=== PATIENT | male | born 1975 | race Caucasian/White ===

== ENCOUNTER 2023-08-06 11:41 | Emergency (ER) | payer BC, SELFPAY ==
[2023-08-06 11:56] VITALS: BP 126/68; PULSE 98; RESP 18; TEMP 37; O2SAT 96
--- NOTE | 2023-08-06 12:25 | ED.URI ---
HPI - URI/Sore Throat General Chief Complaint: Upper Respiratory Infection Stated Complaint: Fever,Cough,Headache,Sore Throat,No Appetite Time Seen by Provider: 08/06/23 11:47 Source: patient Mode of arrival: ambulatory Limitations: no limitations History of Present Illness HPI Narrative: 47-year-old male presents to [facility] with complaints of fevers up to 101, cough, body aches, chills, sore throat sinus pressure since yesterday. Patient has been taking [id number] Tylenol with minimal relief. Patient denies sick contacts. Patient denies recent travels. Patient denies shortness of breath or wheezing. Patient is a nonsmoker MD elicited complaint: fever, sore throat, rhinorrhea and nasal congestion Onset (ago): day(s) (1) Able to tolerate fluids by mouth: Yes Exacerbating factors: nothing Relieving factors: nothing Treatments prior to arrival: acetaminophen Related Data Allergies Allergy/AdvReac Type Severity Reaction Status Date / Time No Known Allergies Allergy Verified 04/19/23 15:00 Review of Systems Constitutional: Constitutional: Reports chills, Reports fatigue, Reports fever(s) and Denies weakness ENT: Denies dizziness, Denies epistaxis, Reports nasal congestion and Reports sore throat Comments: Sinus pressure Cardiovascular: Cardiovascular: Denies chest pain Respiratory: Respiratory: Reports cough, Denies dyspnea and Denies wheezing Gastrointestinal: Gastrointestinal: Denies diarrhea, Denies nausea and Denies vomiting Integumentary/Breasts: Skin/Breast: Denies rash PMFSH Past Medical History Medical History Insulin resistance Social History Social History Smoking status: Never smoker Alcohol intake: never Substance use: never Substance use type: does not use Lack of Transportation: No Lack of Food: Never True Current Housing: I Have Housing Concerned About Future Housing: No Difficulty Paying Gas/Electric Bills: No Difficulty Paying for Meds: No Currently Unemployed: No Education: Bachelor's Degree Difficulty w/ Childcare or Family Care: No Comments At time of signature, I agree with nursing past medical, surgical, social and family history. There is no relevant family history pertinent to the presenting complaint. Exam Const: General: healthy appearing Nutritional Appearance: well nourished and obese Orientation/consciousness: patient oriented x3 Limitations: no limitations HENMT: Head: normal to inspection Ears: external ears normal, TM's normal bilaterally and EAC's normal Mouth: Yes Normal oral and palatal mucosa present, Yes lip normal and Yes moist mucous membranes Throat: posterior oropharynx normal and uvula midline Eyes: Conjunctivae: conjunctivae normal Neck: Neck: normal visual inspection Resp: Effort & Inspection: normal respiratory effort and not labored Auscultation: clear to auscultation bilaterally, no crackles, no rales and no rhonchi Cardio: Rate: regular rate Rhythm: regular rhythm Heart sounds: no murmurs Skin: General skin exam: normal color Rashes: no rashes Neuro: General: patient oriented x3 Speech: normal speech Psych: Affect: normal affect Attitude: cooperative Course Course Level of Care: Express Care Visit Vital Signs Vital signs: Vital Signs Temperature 37.0 C 08/06/23 11:56 Pulse Rate 98 08/06/23 11:56 Respiratory Rate 18 08/06/23 11:56 Blood Pressure 126/68 08/06/23 11:56 Pulse Oximetry 96 08/06/23 11:56 Oxygen Delivery Room Air 08/06/23 11:56 Temperature 37.0 C 08/06/23 11:56 Pulse Rate 98 08/06/23 11:56 Respiratory Rate 18 08/06/23 11:56 Blood Pressure 126/68 08/06/23 11:56 Pulse Oximetry 96 08/06/23 11:56 Oxygen Delivery Room Air 08/06/23 11:56 MDM - URI/Sore Throat MDM Narrative Medical decision making narrative: Discussed lab
== END 2023-08-06 12:33 | disposition home or self-care (01) ==
PROVIDERS: Emergency Provider Nurse Practitioner Family; PCP Family Medicine
DX: U07.1 COVID-19 (principal)
CPT/HCPCS: 87081; 87426; 87804; 87880; 99213; C9803; G0463

== ENCOUNTER 2023-10-10 08:44 | Emergency (ER) | payer BC, SELFPAY ==
--- NOTE | 2023-10-10 09:25 | ED.URI ---
HPI - URI/Sore Throat General Chief Complaint: Upper Respiratory Infection Stated Complaint: cough,sorethroat Time Seen by Provider: 10/10/23 09:07 Source: patient Mode of arrival: ambulatory Limitations: no limitations History of Present Illness HPI Narrative: Reese is a 48-year-old male patient presenting to clinic today with complaints of sore throat and cough x1 week. He reports that the cough is keeping him up at night. He denies any known fever or chills. Reports he is blowing out some yellow nasal drainage. Denies any chest pain or shortness of breath. Had COVID back in July. No known exposure to anyone with flu or strep. MD elicited complaint: cough, sore throat and nasal congestion Related Data Allergies Allergy/AdvReac Type Severity Reaction Status Date / Time No Known Allergies Allergy Verified 10/10/23 09:27 Review of Systems Review of Systems: Pertinent positives per HPI. Patient denies any fever, chills, rash, headache, visual changes, dizziness, shortness of breath, chest pain, palpitations, nausea, vomiting, diarrhea, constipation, abdominal pain, or any urinary issues. [facility] Past Medical History Medical History Insulin resistance Social History Social History Smoking status: Never smoker Alcohol intake: never Substance use: never Substance use type: does not use Lack of Transportation: No Lack of Food: Never True Current Housing: I Have Housing Concerned About Future Housing: No Difficulty Paying Gas/Electric Bills: No Difficulty Paying for Meds: No Currently Unemployed: No Education: Bachelor's Degree Difficulty w/ Childcare or Family Care: No Comments At the time of my signature, I reviewed and agree with the nursing past medical, surgical, social, and family history. There is no relevant family history pertinent to the patient complaint. Exam Narrative: General: Well-developed, morbidly obese, in no apparent distress Head: Normocephalic, atraumatic Eyes: Pupils equally round and reactive to light bilaterally, EOM intact, sclera and conjunctive clear, no discharge, lids normal Ears: TMs intact and congested, ear canals clear, no drainage, grossly hearing normal. Nose: Nares patent, clear discharge, no inflammation, no sinus tenderness. Mouth: Oral pharynx without lesions or masses, good dentition, MMM. Neck: Supple, trachea midline, no enlargement of anterior or posterior cervical nodes, no thyroid masses or goiter palpable. Cardio: Regular rate and rhythm, s1 and s2 normal, no murmur appreciated. Resp: Clear to auscultation bilaterally, no rhonchi, rales, wheezing or rubs Course Course Emergency Course: Portions of this record may have been created with voice recognition software. Level of Care: Express Care Visit Vital Signs Vital signs: Vital signs reviewed MDM - URI/Sore Throat MDM Narrative Medical decision making narrative: At the time of visit patient is resting comfortably on the exam table. Patient is nontoxic appearing. strep test was obtained and negative in the clinic today. I suspect patient has URI pharyngitis. Supportive measures were discussed with the patient he voiced understanding discharge instructions and agrees to treatment plan. Return precautions were reviewed Differential Diagnosis Differential diagnosis: Likely upper respiratory infection, otitis media, sinusitis, viral infection, bronchitis, influenza, pharyngitis and other (COVID) Discharge Plan Discharge Clinical Impression: URI (upper respiratory infection) Qualifiers: URI type: unspecified URI Qualified Code(s): J06.9 - Acute upper respiratory infection, unspecified Pharyngitis Qualifiers: Pharyngitis/tonsillitis etiology: unspecified etiology Qualified Code(s): J02.9 - Acute pharyngitis, unspecified Patient Disposition: H
[2023-10-10 09:28] VITALS: BP 140/78; PULSE 75; RESP 20; TEMP 36; O2SAT 97
== END 2023-10-10 09:40 | disposition home or self-care (01) ==
PROVIDERS: Emergency Provider Nurse Practitioner Family; PCP Family Medicine
DX: J06.9 Acute upper respiratory infection, unspecified (principal); J02.9 Acute pharyngitis, unspecified
CPT/HCPCS: 87081; 87880; 99213; G0463

== ENCOUNTER 2023-11-20 18:52 | Emergency (ER) | payer BC, SELFPAY ==
[2023-11-20 18:52] VITALS: BP 150/84; PULSE 99; RESP 20; TEMP 36.7; O2SAT 95
--- NOTE | 2023-11-20 19:35 | ED.GENADULT ---
HPI - General Adult General Chief complaint: Unspecified Stated complaint: muscle spasm Time Seen by Provider: 11/20/23 19:01 History of Present Illness HPI narrative: This is a 48-year-old male presenting with back pain. Patient fell asleep in his recliner 2 days ago with his head off to the side. Since then has had pain on the right side of his neck. He has pain with movement. No radiation down his arms. No neurologic deficits. He is taking 200 mg of Advil with no relief. No fevers, neurologic deficits or trauma. Related Data Allergies Allergy/AdvReac Type Severity Reaction Status Date / Time No Known Allergies Allergy Verified 10/10/23 09:27 [facility] Past Medical History Medical History Insulin resistance Social History Social History Smoking status: Never smoker Alcohol intake: never Substance use: never Substance use type: does not use Lack of Transportation: No Lack of Food: Never True Current Housing: I Have Housing Concerned About Future Housing: No Difficulty Paying Gas/Electric Bills: No Difficulty Paying for Meds: No Currently Unemployed: No Education: Bachelor's Degree Difficulty w/ Childcare or Family Care: No Exam Narrative: APPEARANCE: No apparent distress. Head: atraumatic. EYES: EOMI, NOSE: Atraumatic NECK: Tenderness to palpation over the right paracervical muscles. Some pain with active and passive motion. No midline tenderness. RESPIRATORY: No increased rate of breathing CARDIOVASCULAR: RRR, ABDOMINAL: Non-distended MUSCULOSKELETAl: No obvious deformities NEURO: Alert. Cranial nerves 2-12 grossly intact. Sensation light touch, motor function cerebellar function intact for 4 extremities. Gait exam was normal. SKIN:: Warm, dry. Normal color PSYCHIATRIC: Normal affect Course Vital Signs Vital signs: Vital Signs Temperature 98.0 F 11/20/23 18:52 Pulse Rate 99 11/20/23 18:52 Respiratory Rate 20 11/20/23 18:52 Blood Pressure 150/84 H 11/20/23 18:52 Pulse Oximetry 95 11/20/23 18:52 Oxygen Delivery Room Air 11/20/23 18:52 Temperature 98.0 F 11/20/23 18:52 Pulse Rate 99 11/20/23 18:52 Respiratory Rate 20 11/20/23 18:52 Blood Pressure 150/84 H 11/20/23 18:52 Pulse Oximetry 95 11/20/23 18:52 Oxygen Delivery Room Air 11/20/23 18:52 Medical Decision Making MDM Narrative Medical decision making narrative: -Course: 48-year-old male presenting with right-sided neck pain after sleeping in his recliner. No concerning findings on history or physical. Given muscle relaxers and pain control and discharged. 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 -Interventions: 10 mg IM Valium, 30 mg Toradol, 1000 mg Tylenol, lidocaine patch -Shared decision making / Disposition: Discharge -RX Motrin Tylenol Robaxin Vital Signs Vital Signs: Vital Signs Temperature 98.0 F 11/20/23 18:52 Pulse Rate 99 11/20/23 18:52 Respiratory Rate 20 11/20/23 18:52 Blood Pressure 150/84 H 11/20/23 18:52 Pulse Oximetry 95 11/20/23 18:52 Oxygen Delivery Room Air 11/20/23 18:52 Temperature 98.0 F 11/20/23 18:52 Pulse Rate 99 11/20/23 18:52 Respiratory Rate 20 11/20/23 18:52 Blood Pressure 150/84 H 11/20/23 18:52 Pulse Oximetry 95 11/20/23 18:52 Oxygen Delivery Room Air 11/20/23 18:52 Discharge Plan Discharge Clinical Impression: Acute neck pain Patient Disposition: Home, Self-Care Condition: Stable Instructions: Antibiotic Form, Acute Neck Pain (ED) Additional Instructions: Please take the prescribed medications for neck pain. Return if you develops severe pain or numbness tingling weakness in extremity. Prescriptions: New acetaminophen 500 mg tablet 1,000 mg PO TID P
[2023-11-20] MEDS: LIDOCAINE 5% PATCH 1 PATCH TRANSDERM (19:38)
[2023-11-20] MEDS: diazePAM INJ (*CRX) 10 MG/2 ML SYRINGE IM (19:38)
[2023-11-20] MEDS: KETOROLAC 30 MG/ML VIAL (*BKC) IM (19:38)
[2023-11-20] MEDS: ACETAMINOPHEN 500 MG TABLET 1000 MG PO (19:38)
== END 2023-11-20 20:00 | disposition home or self-care (01) ==
PROVIDERS: Emergency Provider Emergency Medicine; PCP Family Medicine
DX: M54.2 Cervicalgia (principal); E88.819 Insulin resistance, unspecified; Z79.84 Long term (current) use of oral hypoglycemic drugs
CPT/HCPCS: 96372; 99284; A9270; J1885; J3360

== ENCOUNTER 2024-07-15 00:51 | Day surgery (SDC) | payer BC, SELFPAY ==
[2024-06-26 14:36] VITALS: BMI 47.5
[2024-07-15 08:16] VITALS: BP 143/83; PULSE 79; RESP 20; TEMP 36.4; O2SAT 98
--- NOTE | 2024-07-15 08:25 | P.PNAN_ITS ---
Anes - Initial Pre Proc Eval Procedure: Operation Date: 07/15/24 09:30 Proposed Procedures p Screening Colonoscopy - Demetri Varela MD Date/Time: 07/15/24 08:25 Surgeon: Demetri Varela MD Pre Op Diagnosis: neoplasm screening Patient Data Age: 48 Gender: M Height: 1.83 m Weight: 154.1 kg Last Vital Signs Temp 97.6 F 07/15/24 08:16 Pulse 79 07/15/24 08:16 Resp 20 07/15/24 08:16 BP 143/83 H 07/15/24 08:16 Pulse Ox 98 07/15/24 08:16 O2 Del Method Room Air 07/15/24 08:16 Allergies Allergy/AdvReac Type Severity Reaction Status Date / Time No Known Allergies Allergy Verified 07/15/24 08:14 Home Medications Medication Instructions Recorded Confirmed Type ibuprofen 800 mg tablet 800 mg PO TID PRN pain 7 days #21 11/20/23 07/15/24 Rx tabs lisinopril 10 1 tablet PO DAILY #90 tabs 04/25/24 07/15/24 Rx mg-hydrochlorothiazide 12.5 mg tablet metformin 1,000 mg tablet See Rx Instructions .Route 04/25/24 07/15/24 Rx .COMPLEX #180 tabs acetaminophen 500 mg tablet 1,000 mg PO TID PRN Pain 06/26/24 07/15/24 History Patient hx anesthesia problems: none Family hx anesthesia problems: none Results Review: All pre-operative results and documents have been reviewed as part of the pre- operative evaluation. [facility] Past Medical History Medical History Insulin resistance Social History Social History Smoking status: Never smoker Alcohol intake: never Substance use: never Substance use type: does not use Lack of Transportation: No Lack of Food: Never True Current Housing: I Have Housing Concerned About Future Housing: No Difficulty Paying Gas/Electric Bills: No Difficulty Paying for Meds: No Currently Unemployed: No Education: Bachelor's Degree Difficulty w/ Childcare or Family Care: No Living arrangements: with family Spiritual care concerns: No Anes - Eval Final PreProcedure Day of Procedure 07/15/24 08:25 Patient weight: morbidly obese Heart: regular rate and rhythm Lungs: clear to auscultation Airway: Mallampati scale class III Neurological: alert and oriented Last oral intake: >/= 8 hours ASA classification: III Emergent: no Anesthetic plan: proceed Anesthesia type and monitoring: general GIVS and standard monitoring Results Review: All pre-operative results and documents have been reviewed as part of the pre- operative evaluation. Informed Consent: The patient's anesthetic plan and its attendant risks and benefits were discussed with the patient/family/POA. Questions were solicited and answers provided to the satisfaction of the patient/family/POA.
[2024-07-15] MEDS: LACTATED RINGERS 1,000 ML 150 ML IV CONT (08:36)
[2024-07-15 08:38] LABS: Glucose Point of Care 144 mg/dl (65-105)
--- NOTE | 2024-07-15 08:57 | PM.HPGS ---
History of Present Illness History of Present Illness Consent: Risks, benefits, and alternatives have been discussed and questions answered. Patient agrees to proceed with procedure. Chief complaint: neoplasm screening Narrative: Reese Reed is a 48 year old male here for first screening colonoscopy Review of Systems Review of Systems: All systems reviewed & are unremarkable except as noted in HPI and below PMFSH Past Medical History Medical History Insulin resistance Social History Social History Smoking status: Never smoker Alcohol intake: never Substance use: never Substance use type: does not use Lack of Transportation: No Lack of Food: Never True Current Housing: I Have Housing Concerned About Future Housing: No Difficulty Paying Gas/Electric Bills: No Difficulty Paying for Meds: No Currently Unemployed: No Education: Bachelor's Degree Difficulty w/ Childcare or Family Care: No Living arrangements: with family Spiritual care concerns: No Meds Home Medications and Allergies Home Medications Medication Instructions Recorded Confirmed Type ibuprofen 800 mg tablet 800 mg PO TID PRN pain 7 days #21 11/20/23 07/15/24 Rx tabs lisinopril 10 1 tablet PO DAILY #90 tabs 04/25/24 07/15/24 Rx mg-hydrochlorothiazide 12.5 mg tablet metformin 1,000 mg tablet See Rx Instructions .Route 04/25/24 07/15/24 Rx .COMPLEX #180 tabs acetaminophen 500 mg tablet 1,000 mg PO TID PRN Pain 06/26/24 07/15/24 History Allergies Allergy/AdvReac Type Severity Reaction Status Date / Time No Known Allergies Allergy Verified 07/15/24 08:14 Vital Signs Vital Signs - 24 hr 07/15/24 08:16 Temperature 97.6 F Pulse Rate 79 Respiratory Rate 20 Blood Pressure 143/83 H Pulse Oximetry 98 Oxygen Delivery Room Air Exam Const: General: comfortable and no acute distress HENMT: Face/Nose/Sinus: Normal nares present Eyes: General: appearance normal, both eyes and all related structures Neck: Neck: no JVD Resp: Auscultation: clear to auscultation bilaterally Cardio: Rate: regular rate Rhythm: regular rhythm GI: Inspection: non-distended GI Palp: Yes Soft to palpation Skin: General skin exam: normal color Neuro: General: gait normal Speech: normal speech Extrem: General: normal to inspection Psych: Mental Status: mental status grossly normal Assessment and Plan Assessment and plan (1) Colon cancer screening: Code(s): Z12.11 - Encounter for screening for malignant neoplasm of colon Status: Acute Assessment and Plan: colonoscopy
[2024-07-15 09:12] VITALS: BP 108/75; PULSE 84; RESP 28; O2SAT 94
[2024-07-15 09:22] VITALS: BP 94/82; PULSE 79; RESP 16; O2SAT 96
[2024-07-15 09:32] VITALS: BP 114/64; PULSE 76; RESP 20; O2SAT 96
== END 2024-07-15 09:39 | disposition home or self-care (01) ==
PROVIDERS: PCP Family Medicine; Visit Provider Internal Medicine Gastroenterology
PROC: 0DJD8ZZ Inspection of Lower Intestinal Tract, Via Natural or Artificial Opening Endoscopic (ICD-10-PCS; CPT 45378; principal; 2024-07-15 09:30)
DX: Z12.11 Encounter for screening for malignant neoplasm of colon (principal); K64.8 Other hemorrhoids; E88.819 Insulin resistance, unspecified; E66.01 Morbid (severe) obesity due to excess calories; Z68.42 Body mass index [BMI] 45.0-49.9, adult; Z79.1 Long term (current) use of non-steroidal anti-inflammatories (NSAID); Z79.84 Long term (current) use of oral hypoglycemic drugs
CPT/HCPCS: 45378; 82948; J2704; J7120